=== PATIENT | female | born 1975 | race Caucasian/White ===

== ENCOUNTER → 2016-10-02 | Outpatient (CLI) | payer BC | LOC: FIMAGING 08:45 | PROVIDERS: ATTEND Family Medicine | PROC: CF1CYZZ Planar Nuclear Medicine Imaging of Hepatobiliary System, All using Other Radionuclide (ICD-10-PCS; principal; 2016-10-02) | DX: R10.11 Right upper quadrant pain (principal); E11.9 Type 2 diabetes mellitus without complications | CPT/HCPCS: 78227; A9537 ==